=== PATIENT | female | born 1990 | race Two or more races ===

== ENCOUNTER 2018-12-25 09:16 | Outpatient (CLI) | payer OTHER | END 2018-12-25 09:18 | disposition home or self-care (01) | LOC: LAB SALUS 09:16 → LAB 09:16 → LAB SALUS 09:18 | DX: E78.2 Mixed hyperlipidemia (principal); R53.1 Weakness; Z00.8 Encounter for other general examination ==

== ENCOUNTER 2022-06-16 11:30 | Emergency (ER) | payer OTHER ==
[~2022-06-16] VITALS: Ht 170.2 cm; Wt 65.8 kg
== END 2022-06-16 17:24 | disposition home or self-care (01) ==
LOC: ER 11:30
DX: E86.0 Dehydration (principal); K52.9 Noninfective gastroenteritis and colitis, unspecified; Z91.013 Allergy to seafood